=== PATIENT | male | born 1990 | race American Indian/Alaskan Native ===

== ENCOUNTER 2021-03-23 18:44 | Emergency (ER) | payer OTHER ==
[~2021-03-23] VITALS: Ht 188 cm; Wt 181.0 kg
[2021-03-24] MEDS ORDERED: MAPAP500 MG PO (01:05)
[2021-03-24] MEDS ORDERED: IBU800 MG PO (01:05)
[2021-03-24] MEDS ORDERED: LIDODERM1 EACH TOP (01:05)
== END 2021-03-24 01:23 | disposition home or self-care (01) ==
LOC: ED 18:44
DX: R10.9 Unspecified abdominal pain (principal); R31.9 Hematuria, unspecified; E87.6 Hypokalemia; R74.01 Elevation of levels of liver transaminase levels
CPT/HCPCS: 74176; 80053; 81001; 85025; 96374; 96375; 99284-25; J1885; J2405; J7121

== ENCOUNTER 2022-09-18 16:06 | Emergency (ER) | payer OTHER ==
[~2022-09-18] VITALS: Ht 188 cm; Wt 171.9 kg
[~2022-09-18 16:06] MED LIST: IBU800 MG PO; LIDODERM1 EACH TOP; MAPAP500 MG PO
[2022-09-18] MEDS ORDERED: CEPHALEXIN500 M1 PO (17:33)
[2022-09-18 18:11] VITALS: BP 126/71
== END 2022-09-18 18:10 | disposition home or self-care (01) ==
LOC: ED 16:06
DX: L02.11 Cutaneous abscess of neck (principal)
CPT/HCPCS: 36415; 80053; 85025; A9270; J0696; J2250; J3010; J7030